=== PATIENT | female | born 1940 | race Caucasian/White ===

== ENCOUNTER 2019-08-06 06:54 | Inpatient (IN) ==
--- NOTE | 2019-07-19 19:42 | PAT Medication Instructions ---
Medication Instructions Date of Service July 19, 2019 Home Medications acetaminophen [Tylenol] 650 mg PO Q6H PRN 07/18/19 [History Confirmed 07/18/19] ezetimibe [Zetia] 10 mg PO QAM 07/18/19 [History Confirmed 07/18/19] fluticasone propionate [Flonase Allergy Relief] 2 spray INTRANASAL DAILY PRN 07/18/19 [History Confirmed 07/18/19] lisinopril 10 mg PO QAM 07/18/19 [History Confirmed 07/18/19] lovastatin 80 mg PO PM 07/18/19 [History Confirmed 07/18/19] metformin 500 mg PO BID 07/18/19 [History Confirmed 07/18/19] omeprazole magnesium [Prilosec OTC] 20 mg PO QAM 07/18/19 [History Confirmed 07/18/19] DO NOT take the morning of surgery lisinopril 10 mg PO QAM 07/18/19 [History Confirmed 07/18/19] metformin 500 mg PO BID 07/18/19 [History Confirmed 07/18/19] Take morning of surgery With a small sip of water, OTHERWISE NOTHING TO EAT OR DRINK AFTER MIDNIGHT: acetaminophen [Tylenol] 650 mg PO Q6H PRN 07/18/19 [History Confirmed 07/18/19] (okay to take up to 4 hours prior to surgery if needed) ezetimibe [Zetia] 10 mg PO QAM 07/18/19 [History Confirmed 07/18/19] fluticasone propionate [Flonase Allergy Relief] 2 spray INTRANASAL DAILY PRN 07/18/19 [History Confirmed 07/18/19] (if needed) omeprazole magnesium [Prilosec OTC] 20 mg PO QAM 07/18/19 [History Confirmed 07/18/19] Take evening before surgery acetaminophen [Tylenol] 650 mg PO Q6H PRN 07/18/19 [History Confirmed 07/18/19] (if needed) fluticasone propionate [Flonase Allergy Relief] 2 spray INTRANASAL DAILY PRN 07/18/19 [History Confirmed 07/18/19] (if needed) lovastatin 80 mg PO PM 07/18/19 [History Confirmed 07/18/19] metformin 500 mg PO BID 07/18/19 [History Confirmed 07/18/19] Other Notes If you have any questions please call us at [phone] or [phone] or [phone] or [phone]
--- NOTE | 2019-07-20 13:25 | Anesthesiology Consultation ---
Date of Service July 20, 2019 Assessment & Plan (1) Encounter for pre-operative examination: - Awaiting review preop testing (labs, CXR). - Awaiting surgeon-ordered PCP preop evaluation scheduled 07/23 (Dr. De La O). Chart Review Chart Review: Patient seen in Pre Admission Testing Teaching & Discussion Pre-Anesthesia Teaching/Discussion Notes: Instructed NPO after midnight before surgery,except medications with 15 cc of water. Medication instructions provided according to the PAT guidelines. History Surgery Operation Date: 08/06/19 08:20 Proposed Procedures p Left Total Knee Arthroplasty - Silas Crowell Height/Weight Height: 5 ft 8 in Weight: 78 kg Allergies Allergy/AdvReac Type Severity Reaction Status Date / Time Prqnguz-Syo-Osd Reductase AdvReac Unknown raises Verified 07/18/19 08:06 Inhibitor liver enzymes Medications Home Medications Medication Instructions Recorded Confirmed Last Taken acetaminophen [Tylenol] 650 mg PO Q6H PRN 07/18/19 07/18/19 Unknown ezetimibe [Zetia] 10 mg PO QAM 07/18/19 07/18/19 Unknown fluticasone propionate [Flonase 2 spray INTRANASAL DAILY PRN 07/18/19 07/18/19 Unknown Allergy Relief] lisinopril 10 mg PO QAM 07/18/19 07/18/19 Unknown lovastatin 80 mg PO PM 07/18/19 07/18/19 Unknown metformin 500 mg PO BID 07/18/19 07/18/19 Unknown omeprazole magnesium [Prilosec OTC] 20 mg PO QAM 07/18/19 07/18/19 Unknown Past Medical History Medical History Arthritis Diabetes mellitus, type 2 NIDDM GERD (gastroesophageal reflux disease) controlled Hiatal hernia Hyperlipidemia Hypertension Urinary bladder incontinence Exercise / Class Metabolic Activity III < 4 Walking/Shop/Light housework Past Family History Family History Sister Family history of diabetes mellitus Sister Family history of diabetes mellitus Brother Family history of diabetes mellitus Brother Family history of diabetes mellitus Brother Family history of diabetes mellitus Brother Family history of diabetes mellitus Father Family history of diabetes mellitus Past Surgical History Surgical History History of cataract surgery R/L History of dilatation and curettage History of ear surgery R/L-TOTAL 3 History of tonsillectomy Past Anesthesia History No Family Hx of Anesthesia Complications and Other "Slow to wake" x 1 episode. No similar issues with other surgeries/anesthesia. History of PONV No Hx of Motion Sickness and History of PONV (nausea x 1) Social History Smoking Status: Never smoker Do You Dip or Chew Tobacco: No Hx Alcohol Use: Yes Alcohol type: beer alcohol intake frequency: holidays/special occasions only Hx Substance Use: No Review of Systems Reflux controlled. Patient denies chest pain, shortness of breath, cough, wheezing, palpitations. Physical Exam Vital Signs VITALS BP 139/87 P 70 TEMP 97.8 SP02 99%RA RESP 18 PHYSICAL Full neck and c-spine range of motion. Full TMJ range of motion. TMD 3 finger breaths Mallampati Score 2 Dentition: full upper/lower denture Lungs: clear throughout to auscultation Cardiac: regular rate and rhythm, no murmurs noted Spine: normal Carotid arteries: negative bruit Extremities: no edema Testing Laboratory Results 06/18/19 SODIUM 137 POTASSIUM 4.8 CHLORIDE 98 CO2 28 BUN 9 CREATININE 1.0 GLUCOSE 89 HGBA1C 5.5% Electrocardiogram Date: 12/12/18 NSR at 68bpm.
--- NOTE | 2019-07-20 14:06 | XRay Report ---
XR chest Pre-admission PA/Lat CLINICAL HISTORY: Preoperative chest COMPARISON STUDY: No previous studies for comparison. FINDINGS: The cardiac and mediastinal contours are normal. There is no evidence of focal pulmonary co nsolidation. There is no evidence of failure. No pleural effusions are visualized.[ IMPRESSION: No active disease in the chest. Electronically signed by: Tre Loo M.D. 07/20/2019 2:04 PM
[2019-07-20 14:54] LABS: Basophils # (auto) 0.03 K/uL (0-0.2); Basophils % (auto) 1.1 %; Eosinophils # (auto) 0.01 K/uL (0-0.5); Eosinophils % (auto) 0.4 %; Hemoglobin 13.2 g/dL (12.0-16.0); Lymphocytes # (auto) 1.17 K/uL (1.2-3.4); Lymphocytes % (auto) 41.8 %; Mean Corpuscular Hemoglobin 28.6 pg (25-34); Mean Corpuscular Hgb Conc 34.7 g/dL (32-36); Mean Corpuscular Volume 82.4 fL (80-100); Mean Platelet Volume 9.8 fL (7.4-10.4); Monocytes # (auto) 0.32 K/uL (0.11-0.59); Monocytes % (auto) 11.4 %; Neutrophils # (auto) 1.27 K/uL (1.4-6.5); Neutrophils % (auto) 45.3 %; Platelet Count 174 K/uL (130-400); RDW Coefficient of Variation 14.6 % (11.5-14.5); RDW Standard Deviation 43.6 fL (36.4-46.3); Red Blood Count 4.61 M/uL (4.2-5.4)
[2019-07-20 15:07] LABS: Partial Thromboplastin Ratio 0.9; Partial Thromboplastin Time 25.5 Seconds (21.0-31.0); Prothrombin Time 10.7 Seconds (9.0-12.0)
[2019-07-20 15:08] LABS: Appearance Urine Clear (Clear); Bacteria Urine Automated 2+ (Negative); Bilirubin Urine Negative (Negative); Blood Urine Negative (Negative); Cast Urine Automated 0 /lpf (0-5); Color Urine Dark Yellow; Glucose Urine UA Negative (Negative); Ketones Urine Negative (Negative); Leukocyte Esterase Urine 1+ (Negative); Nitrite Urine Negative (Negative); Protein Urine Negative (Negative); RBC Urine Automated 0-4 /hpf (0-4); Specific Gravity Urine 1.016 (1.000-1.030); Urobilinogen Urine Negative (Negative); pH Urine 6.5 (4.5-7.5)
[2019-07-20 15:14] LABS: Albumin Level 4.1 gm/dl (3.4-5.0); Calcium 9.9 mg/dl (8.5-10.1); Creatinine Clr Calc Pharmacy 50.7 ml/min; Est GFR (African American) 61.4; Potassium 4.7 mmol/L (3.5-5.1)
[2019-07-20 15:17] LABS: Albumin Globulin Ratio 1.1 (0.9-2); Bilirubin,Total 0.7 mg/dl (0.2-1); Globulin 3.7 gm/dl (2.5-4.0); Total Protein 7.8 gm/dl (6.4-8.2)
--- NOTE | 2019-08-02 15:15 | History & Physical Report ---
Date of Service August 02, 2019 Assessment & Plan (1) Degenerative joint disease of left knee: Plan is to admit and undergo left total knee athroplasty. History of Present Illness Chief Complaint: left knee pain Primary Care Provider: Adrian De La O MD Pt with history of left knee pain for years. Pt has failed nsaids, injectiosn and pt and now ready for TKA. Allergies Allergy/AdvReac Type Severity Reaction Status Date / Time Ljzkojs-Khn-Pvi Reductase AdvReac Unknown raises Verified 07/18/19 08:06 Inhibitor liver enzymes Home Medications Home Medications Medication Instructions Recorded Confirmed Type acetaminophen [Tylenol] 650 mg PO Q6H PRN 07/18/19 07/18/19 History ezetimibe [Zetia] 10 mg PO QAM 07/18/19 07/18/19 History fluticasone propionate [Flonase 2 spray INTRANASAL DAILY PRN 07/18/19 07/18/19 History Allergy Relief] lisinopril 10 mg PO QAM 07/18/19 07/18/19 History lovastatin 80 mg PO PM 07/18/19 07/18/19 History metformin 500 mg PO BID 07/18/19 07/18/19 History omeprazole magnesium [Prilosec OTC] 20 mg PO QAM 07/18/19 07/18/19 History Past Med/Surg History Medical History Arthritis Diabetes mellitus, type 2 NIDDM GERD (gastroesophageal reflux disease) controlled Hiatal hernia Hyperlipidemia Hypertension Urinary bladder incontinence Surgical History History of cataract surgery R/L History of dilatation and curettage History of ear surgery R/L-TOTAL 3 History of tonsillectomy Family History Sister Family history of diabetes mellitus Sister Family history of diabetes mellitus Brother Family history of diabetes mellitus Brother Family history of diabetes mellitus Brother Family history of diabetes mellitus Brother Family history of diabetes mellitus Father Family history of diabetes mellitus Social History Preferred Language: Singaporean Communication Ability: Effective High Pressure Cleaner Required: No Beliefs That Will Affect Care: None Current Living Situation: Spouse Other Information That Helps Us Care for You: No Feels Safe at Home: Yes Safety Concerns: Feels Safe At This Time Smoking Status: Never smoker Do You Dip or Chew Tobacco: No ; Second Hand Exposure: Yes (FAMILY SMOKED GROWING UP) ; Hx Alcohol Use: Yes Alcohol type: beer Hx Substance Use: No Review of Systems All systems reviewed & are unremarkable except as noted in HPI & below Physical Exam Constitutional: WD/WN, vitals as above Respiratory: normal respiratory effort, lungs clear to auscultation Cardiovascular: RRR, no murmur, no edema Gastrointestinal (Abdomen): normal bowel sounds, soft, nontender, no hepatosplenomegaly Musculoskeletal: Knee: + limited ROM of knee, + knee ROM with crepitation, + joint line tenderness and + varus alignment
[~2019-08-06 06:54] MED LIST: ACETAMINOPHEN 500 MG TAB PO SCH; BUPIVACAINE 0.5 % 5 MG/1 ML PF 10ML VIAL ONE; BUPIVACAINE/EPINEPHRINE 0.25% 1:200,000 30 ML VIAL ONE; CEFAZOLIN 1000MG 1,000 MG/7.5 ML SYR IV SCH; CeleBREX 200 MG CAP PO SCH; FAMOTIDINE 20 MG TAB PO SCH; LR 500ML BOLUS IV SCH; LR 60ML/HR IV SCH; METOCLOPRAMIDE HCL 10 MG TABLET PO SCH; ROPIVACAINE 0.5% HCL/PF 150 MG, BUPIVACAINE 0.5% MPF 30 ML, EPINEPHrine 30MG/30ML (OR U... INSTIL SCH; TRANEXAMIC ACID 1,000 MG **IV Intra-op IV SCH; TRANEXAMIC ACID 1,000 MG **IV Pre-op IV SCH; dexAMETHasone 4 MG TAB PO SCH
[2019-08-06] MEDS ORDERED: LIDOCAINE HCL 2% 2 ML VIAL/AMP(20MG/ML) INFIL ONE (07:36)
[2019-08-06] MEDS ORDERED: PROPOFOL IV EMULSION 10 MG/ML 20 ML VIAL IV ONE ×2 (07:36→10:11)
[2019-08-06] MEDS ORDERED: MIDAZOLAM HCL 1 MG/ML 2ML VIAL ONE ×2 (07:37)
[2019-08-06] MEDS ORDERED: fentaNYL citrate 100 MCG/2 ML VIAL ONE (07:37)
--- NOTE | 2019-08-06 08:13 | History & Physical Bridge Note ---
Date of Service August 06, 2019 History & Physical Bridge Note I have examined the patient, reviewed the History & Physical and in the interval since the performance of the History & Physical I have noted the following changes of clinical significance: no changes noted
[2019-08-06] MEDS ORDERED: HYDROmorphone INJ 2 MG/ML SYR/VIAL IV PRN (08:31)
[2019-08-06] MEDS ORDERED: ePHEDrine sulfate 50 MG/ML AMP IV PRN (08:31)
[2019-08-06] MEDS ORDERED: ATROPINE SULFATE 0.1 MG/ML 10ML SYR IV PRN (08:31)
[2019-08-06] MEDS ORDERED: ONDANSETRON INJ 2 MG/ML 2 ML VIAL IV PRN ×2 (08:31→11:47)
[2019-08-06] MEDS ORDERED: fentaNYL citrate 100 MCG/2 ML VIAL IV PRN (08:31)
[2019-08-06] MEDS ORDERED: BACITRACIN INJ 50,000 UNIT VIAL ONE (08:34)
[2019-08-06] MEDS ORDERED: ORTHO JOINT ANESTHETIC ONE (08:34)
--- NOTE | 2019-08-06 09:57 | Post Operative Brief Note ---
Immediate Post Op Note v1 Date of Surgery August 06, 2019 Pre & Post Diagnosis Operation Date: 08/06/19 09:40 Pre-Op Diagnosis: Left Knee Osteoarthritis Post-Op Diagnosis: Left Knee Osteoarthritis I identified the patient and participated in the time-out.: Yes Procedure Operation Date: 08/06/19 09:40 Actual Procedures p Left Total Knee Arthroplasty(Left) - Silas Crowell Surgeon Silas Crowell Tube Filler Earl Mari PAC Estimated Blood Loss 10 Findings Consistent with Post-Op Diagnosis Complications none Disposition Accompanied Patient To Recovery: No Disposition: Recovery Room
--- NOTE | 2019-08-06 09:58 | Operative Report ---
Post Operative Report Pre & Post Diagnosis Operation Date: 08/06/19 09:40 Pre-Op Diagnosis: Left Knee Osteoarthritis Post-Op Diagnosis: Left Knee Osteoarthritis I identified the patient and participated in the time-out.: Yes Procedure Operation Date: 08/06/19 09:40 Actual Procedures p Left Total Knee Arthroplasty(Left) - Silas Crowell Surgeon Silas Crowell Shank Maker Earl Mari PAC Estimated Blood Loss 10 Findings Consistent with Post-Op Diagnosis Specimens None Complications none Disposition Accompanied Patient To Recovery: No Disposition: Recovery Room Description of Procedure IMPLANTS USED: [employer] journey 2 knee size 4 cemented femoral component, a size 3 tibial component, a size 12 constrained insert and a size 29 all polyethylene patella INDICATIONS: Mrs. Quinones is a pleasant (male/female) who has unfortunately failed all forms of conservative measures. Therefore, they have decided to undergo elective surgical intervention. All risks and benefits of the surgery were discussed with the patient and the family in entirety. PROCEDURE: The patient was brought to the operating room and properly identified by myself, anesthesia, and staff. Patient was given a spinal anesthesia and placed on the operating table in the supine position. Tourniquets were applied to the left upper thigh. The leg was then prepped and draped in usual sterile fashion. We made a standard midline approach over the patella and dissected down through the subcutaneous tissue to identify the capsule and performed a medial capsulotomy with the patella everted and the knee flexed.The patient matched implant was then put onto the femur. The femur measured to be a size #4. This was then put into place. We made the appropriate cuts and then placed a retractor behind the proximal tibia to retract anteriorly. We then placed the patient matched knee implant on the tibia. It measured to be a size #3. A size #3 guide was then put in place. We used the tibial punch then put the trial components into place. We had very good range of motion, excellent stability, and excellent patella tracking. We removed the trial components and irrigated the wound. We impacted the components in place using antibiotic cement. All excess cement was removed. We then irrigated the wound once more. We closed the capsule with 0 PDS suture, deep dermis and 2-0 Vicryl, and finally the skin with stephanie. A sterile dressing was applied. The patient was taken to the recovery room in stable condition. Due to the complex nature of the procedure, the entire surgery was performed with the operational assistance of Earl Blackwood PA-C. The phys assistant was under direct supervision, was involved in the actual performance of all aspects of the surgical procedure including hemostasis, tissue retraction and incision, instrument management, patient positioning, and wound closure. I attest to the content of the Intraoperative Record and any orders documented therein. Any exceptions are noted below.
--- NOTE | 2019-08-06 11:24 | Anesthesiology Progress Note ---
Date of Service August 06, 2019 Anesthesia Post Procedure Vital Signs Vital Signs: Temp Pulse Pulse Resp BP Pulse Ox 08/06/19 11:10 92 H 22 134/71 100 08/06/19 11:00 90 22 129/71 100 08/06/19 10:50 88 13 122/57 L 100 08/06/19 10:40 88 13 121/56 L 100 08/06/19 10:30 36.1 C L 95 H 17 123/56 L 99 08/06/19 07:45 36.8 C 74 18 171/96 H 100 Transfer of Care Handoff Completed per policy Notes Mental Status: alert / awake / arousable and participated in evaluation Patient Amnestic to Procedure: Yes Nausea / Vomiting: adequately controlled Pain: adequately controlled Airway Patency, RR, SpO2: stable & adequate BP & HR: stable & adequate Hydration State: stable & adequate Anesthetic Complications: no major complications apparent and Pt Satisfied with anesthetic care
[2019-08-06] MEDS ORDERED: BISACODYL 10 MG SUPP PR PRN (11:47)
[2019-08-06] MEDS ORDERED: METOCLOPRAMIDE HCL INJ 5 MG/ML 2 ML VIAL IV PRN (11:47)
[2019-08-06] MEDS ORDERED: MAGNESIUM HYDROXIDE SUSP 30 ML UDC PO PRN (11:47)
[2019-08-06] MEDS ORDERED: OXYCODONE HCL IR 5 MG TAB (IMMEDIATE RELEASE) PO PRN (11:47)
[2019-08-06] MEDS ORDERED: NALOXONE HCL 0.4 MG/1 ML VIAL/CARP IV PRN (11:47)
[2019-08-06] MEDS: SODIUM CHLORIDE 0.9% 1000ML 1,000 ML IV SCH ×2 (12:15→22:19)
[2019-08-06] MEDS ORDERED: PHARMACY GLYCEMIC MGMT CONSULT PRN (13:45)
[2019-08-06] MEDS: CEFAZOLIN 2000MG 2,000 MG/15 ML SYR IV SCH ×2 (13:46→20:56)
[2019-08-06] MEDS: ACETAMINOPHEN 500 MG TAB PO SCH ×2 (13:46→20:49)
--- NOTE | 2019-08-06 14:41 | Pharmacy Report ---
Glycemic Control Consultation - Date of Service August 06, 2019 - Scope Scope: Glycemic Pharmacist consulted by Earl Blackwood on 08/06 for glycemic control and to write orders per [facility] inpatient glycemic control protocol - Objective Weight: 77.292 kg Accuchecks BSG (last 24hrs): 08/06/19 08/06/19 08/06/19 07:35 10:34 11:58 POC Glucose 98 131 H 189 H - Recent Pertinent Medications Outpatient Anti-diabetic Regimen: * metformin 500 mg bid * A1c = ordered for tomorrow AM Risk Factors for Insulin Resistance: * Steroids: Dxm 8 mg po x 1, ortho (contains dex) - ordered 10 mg iv dex tomorrow 08/07 am x 1 dose * Recent Surgery: POD 0 * Diet: T2DM - Assessment & Plan Assessment & Plan: ASSESSMENT: * 79 year old now s/p L TKA. PMHx significant for DM2, GERD, htn, hld. Managed only on metformin at home for diabetes. A1C unknown- ordered for tomorrow morning * Patient did receive steroids preop - anticipate steroid induced hyperglycemia postop. Therefore, will utilize basal/bolus dosing postop * Nurse notified me patient nauseous postop, ate very little for lunch - therefore will start insulin orders with dinner PLAN FOR INPATIENT GLYCEMIC CONTROL: * Pt is maintained on oral antidiabetic agents as an outpatient * Oral agents are not recommended for inpatient use d/t drug interactions, changing PO intake, and difficulty titrating for acute hyper/hypoglycemia. ADA recommends re-initiating outpatient oral agents 1-2 days prior to discharge if/when appropriate if they were held on admission. * Will hold oral agents for admission and utilize SQ basal bolus insulin regimen which is the recommended regimen for inpatient glycemic control. * Will initiate weight based insulin dosing for insulin vic patient and titrate based on BSG trends. * Basal insulin * Lantus per scale with dinner -for BSG less than 140 - give 10 units -for BSG 140 - 220 - give 15 units -for BSG greater than 220 - give 20 units * Bolus insulin * NovoLog per scale ACHS or Q6hrs while NPO * Goal Range: Low 120 mg/dL - High 160 mg/dL * Correction Factor: 30 mg/dL/unit * Nutritional / Prandial insulin per carb ratio of 1 unit per 10 grams CHO consumed * Please note that the plan above was derived based on current level of insulin resistance and hospital stress. These recommendations are appropriate for inpatient admission only. Plan of care upon discharge will need to be reassessed to avoid potential outpatient hypo/hyperglycemia. Thank you.
[2019-08-06] MEDS ORDERED: TRANEXAMIC ACID 1,000 MG in 0.9 % SODIUM CHLORIDE 100 ML IV SCH (15:53)
[2019-08-06] MEDS ORDERED: LANTUS PER UNIT CHARGE SQ SCH (16:30)
[2019-08-06] MEDS ORDERED: METFORMIN HCL 500 MG TAB PO SCH (17:00)
[2019-08-06] MEDS: INSULIN ASPART 100 UNITS/ML 3 ML PEN SC SCH ×3 (17:45→23:45)
[2019-08-06] MEDS: DOCUSATE SODIUM 100 MG CAP PO SCH (20:49)
[2019-08-06] MEDS: ASPIRIN 81 MG ECTAB PO SCH (20:49)
[2019-08-06] MEDS ORDERED: SENNA 8.6 MG TAB PO SCH (21:00)
[2019-08-06] MEDS ORDERED: LOVASTATIN 20 MG TAB PO SCH (21:00)
[2019-08-07] MEDS: INSULIN ASPART 100 UNITS/ML 3 ML PEN SC SCH ×3 (04:19→12:38)
[2019-08-07] MEDS: ACETAMINOPHEN 500 MG TAB PO SCH ×2 (05:32→13:20)
[2019-08-07 07:06] LABS: Hematocrit (blood only) 33.3 % (37-47); Hemoglobin 11.7 g/dL (12.0-16.0); Mean Corpuscular Hemoglobin 28.9 pg (25-34); Mean Corpuscular Hgb Conc 35.1 g/dL (32-36); Mean Corpuscular Volume 82.2 fL (80-100); Mean Platelet Volume 9.2 fL (7.4-10.4); Platelet Count 161 K/uL (130-400); RDW Coefficient of Variation 14.3 % (11.5-14.5); RDW Standard Deviation 43.2 fL (36.4-46.3); Red Blood Count 4.05 M/uL (4.2-5.4); White Blood Count 6.25 K/uL (4.8-10.8)
[2019-08-07 07:38] LABS: BUN Creatinine Ratio 17.3 (10-20); Calcium 9.1 mg/dl (8.5-10.1); Creatinine Clr Calc Pharmacy 57.9 ml/min; Est GFR (African American) 72.5; Est GFR (Non-African American) 62.5; Potassium 4.3 mmol/L (3.5-5.1)
[2019-08-07 07:51] LABS: Estimated Average Glucose 111 mg/dl; Hemoglobin A1C 5.5 % (4.5-5.6)
[2019-08-07] MEDS ORDERED: dexAMETHasone 10 MG in SYRINGE 0 ML IV SCH (08:00)
--- NOTE | 2019-08-07 08:14 | Anesthesiology Progress Note ---
Date of Service August 07, 2019 Anesthesia Post Procedure Vital Signs Vital Signs: Temp Pulse Pulse Resp BP BP Pulse Ox 08/07/19 07:00 36.6 C 69 16 143/72 H 98 08/07/19 04:00 36.5 C 72 16 129/65 99 08/06/19 23:49 36.4 C L 71 16 146/72 H 99 08/06/19 19:45 36.5 C 70 17 166/83 H 100 08/06/19 15:01 36.7 C 78 16 146/78 H 100 08/06/19 14:25 36.6 C 77 16 142/77 H 100 08/06/19 13:38 100 08/06/19 13:30 72 16 129/66 100 08/06/19 12:32 78 16 137/73 100 08/06/19 12:00 78 16 136/74 100 08/06/19 11:30 36.4 C L 94 H 16 154/73 H 100 08/06/19 11:20 36.4 C L 86 20 133/68 100 08/06/19 11:10 92 H 22 134/71 100 08/06/19 11:00 90 22 129/71 100 08/06/19 10:50 88 13 122/57 L 100 08/06/19 10:40 88 13 121/56 L 100 08/06/19 10:30 36.1 C L 95 H 17 123/56 L 99 Notes Mental Status: alert / awake / arousable and participated in evaluation Patient Amnestic to Procedure: Yes Nausea / Vomiting: adequately controlled Pain: adequately controlled Airway Patency, RR, SpO2: stable & adequate BP & HR: stable & adequate Hydration State: stable & adequate Neuraxial Anesthesia: was administered and sensory block resolved Anesthetic Complications: no major complications apparent and Pt Satisfied with anesthetic care
--- NOTE | 2019-08-07 08:45 | Orthopedic Progress Note ---
Date of Service August 07, 2019 Assessment & Plan (1) Degenerative joint disease of left knee: Postop day 1 status post left TKA PT/OT protocols. Weightbearing as tolerated. DVT prophylaxis-aspirin twice daily, AV impulse boots Pain management as written. Discharge planning-home health services upon discharge Subjective Postop day 1 status post left total knee arthroplasty. Patient is currently sitting up in bed awake and alert. She has no complaints this morning. Pain is controlled. She denies any shortness of breath, chest pain, lightheadedness. She is hoping to go home today. Physical Exam Physical Exam: Dressings are clean, dry, and intact. Calves are soft and nontender. Neurovascular is intact. Toes are mobile. She has good dorsiflexion and plantarflexion. Results & Data Vital Signs (Past 12 Hours) Vital Signs Temp Pulse Resp BP Pulse Ox 08/07/19 07:00 36.6 C 69 16 143/72 H 98 08/07/19 04:00 36.5 C 72 16 129/65 99 08/06/19 23:49 36.4 C L 71 16 146/72 H 99 Laboratory Results Laboratory Results WBC 6.25 K/uL (4.8-10.8) 08/07/19 06:51 RBC 4.05 M/uL (4.2-5.4) L 08/07/19 06:51 Hgb 11.7 g/dL (12.0-16.0) L 08/07/19 06:51 Hct 33.3 % (37-47) L 08/07/19 06:51 MCV 82.2 fL (80-100) 08/07/19 06:51 MCH 28.9 pg (25-34) 08/07/19 06:51 MCHC 35.1 g/dL (32-36) 08/07/19 06:51 RDW Std Deviation 43.2 fL (36.4-46.3) 08/07/19 06:51 RDW Coeff of Olivier 14.3 % (11.5-14.5) 08/07/19 06:51 Plt Count 161 K/uL (130-400) 08/07/19 06:51 MPV 9.2 fL (7.4-10.4) 08/07/19 06:51 Immature Gran % (Auto) 0.0 % 07/20/19 13:38 Neut % (Auto) 45.3 % 07/20/19 13:38 Lymph % (Auto) 41.8 % 07/20/19 13:38 [place] % (Auto) 11.4 % 07/20/19 13:38 Eos % (Auto) 0.4 % 07/20/19 13:38 Baso % (Auto) 1.1 % 07/20/19 13:38 Immature Gran # (Auto) 0.00 K/uL (0.00-0.02) 07/20/19 13:38 Neut # (Auto) 1.27 K/uL (1.4-6.5) L 07/20/19 13:38 Lymph # (Auto) 1.17 K/uL (1.2-3.4) L 07/20/19 13:38 [place] # (Auto) 0.32 K/uL (0.11-0.59) 07/20/19 13:38 Eos # (Auto) 0.01 K/uL (0-0.5) 07/20/19 13:38 Baso # (Auto) 0.03 K/uL (0-0.2) 07/20/19 13:38 PT 10.7 Seconds (9.0-12.0) 07/20/19 13:38 INR 1.0 (0.9-1.1) 07/20/19 13:38 APTT 25.5 Seconds (21.0-31.0) 07/20/19 13:38 PTT Ratio 0.9 07/20/19 13:38 Sodium 134 mmol/L (136-145) L 08/07/19 06:51 Potassium 4.3 mmol/L (3.5-5.1) 08/07/19 06:51 Chloride 106 mmol/L (98-107) 08/07/19 06:51 Carbon Dioxide 23 mmol/L (21-32) 08/07/19 06:51 Anion Gap 6.0 (3-11) 08/07/19 06:51 BUN 16 mg/dl (7-18) 08/07/19 06:51 Creatinine 0.89 mg/dl (0.6-1.2) 08/07/19 06:51 Est Cr Clr Drug Dosing 57.9 ml/min 08/07/19 06:51 Est GFR ( Amer) 72.5 08/07/19 06:51 Est GFR (Non-Af Amer) 62.5 08/07/19 06:51 BUN/Creatinine Ratio 17.3 (10-20) 08/07/19 06:51 Glucose 113 mg/dl (70-99) H 08/07/19 06:51 POC Glucose 114 (70-99) H 08/07/19 08:27 Estimat Average Glucose 111 mg/dl 08/07/19 06:51 Hemoglobin A1c 5.5 % (4.5-5.6) 08/07/19 06:51 Calcium 9.1 mg/dl (8.5-10.1) 08/07/19 06:51 Total Bilirubin 0.7 mg/dl (0.2-1) 07/20/19 13:38 AST 23 U/L (15-37) 07/20/19 13:38 ALT 24 U/L (12-78) 07/20/19 13:38 Alkaline Phosphatase 63 U/L (45-117) 07/20/19 13:38 Total Protein 7.8 gm/dl (6.4-8.2) 07/20/19 13:38 Albumin 4.1 gm/dl (3.4-5.0) 07/20/19 13:38 Globulin 3.7 gm/dl (2.5-4.0) 07/20/19 13:38 Albumin/Globulin Ratio 1.1 (0.9-2) 07/20/19 13:38 Urine Color Dark Yellow 07/20/19 13:38 Urine Appearance Clear (Clear) 07/20/19 13:38 Urine pH 6.5 (4.5-7.5) 07/20/19 13:38 Ur Specific Ash 1.016 (1.000-1.030) 07/20/19 13:38 Urine Protein Negative (Negative) 07/20/19 13:38 Urine Glucose (UA) Negative (Negative) 07/20/19 13:38 Urine Ketones Negative (Negative) 07/20/19 13:38 Urine Blood Negative (Negative) 07/20/19 13:38 Urine Nitrite Negative (Negative) 07/20/19 13:38 Urine Bilirubin Negative (Negative) 07/20/19 13:38 Urine Urobilinogen Negative (Negative) 07/20/19 13:38 Ur Leukocyte Esterase 1+ (Negative) H 07/20/19 13:38 Urine WBC (Auto) 1-5 /hpf (0-5) 07/20/19 13:38 Urine RBC (Auto) 0-4 /hpf (0-4) 07/20/19 13:38 U Hyaline Cast (Auto) 0 /lpf (0-5) 07/20/19 13:38 U Epithel Cells (Auto) 5-10 /lpf (0-5) H 07/20/19 13:38 Urine Bacteria (Auto) 2+ (Negative) H 07/20/19 13:38 Nasal Screen MRSA (PCR) Negative (Negative) 07/20/19 13:38 Blood Type A Positive 07/20/19 13:38 Antibody Screen NEGATIVE 07/20/19 13:38
[2019-08-07] MEDS ORDERED: CIPROFLOXACIN 500 MG TAB PO SCH (09:00)
[2019-08-07] MEDS ORDERED: EZETIMIBE 10 MG TABLET PO SCH (09:00)
[2019-08-07] MEDS ORDERED: LISINOPRIL 10 MG TAB PO SCH (09:00)
[2019-08-07] MEDS: DOCUSATE SODIUM 100 MG CAP PO SCH (09:00)
[2019-08-07] MEDS: ASPIRIN 81 MG ECTAB PO SCH (09:00)
--- NOTE | 2019-08-07 10:28 | Pharmacy Report ---
Pharmacy Glycemic Short Note 2 - Date of Service August 07, 2019 - Glycemic Short BSG Results (Last 24 hours): 08/06/19 08/06/19 08/06/19 10:34 11:58 17:17 Glucose POC Glucose 131 H 189 H 142 H 08/06/19 08/06/19 08/07/19 20:49 23:41 04:04 Glucose POC Glucose 158 H 173 H 128 H 08/07/19 08/07/19 06:51 08:27 Glucose 113 H POC Glucose 114 H ASSESSMENT: * 79 year old now s/p L TKA. PMHx significant for DM2, GERD, htn, hld. Managed only on metformin at home for diabetes. A1C unknown- ordered for tomorrow morning * Patient did receive steroids preop - anticipate steroid induced hyperglycemia postop. Therefore, will utilize basal/bolus dosing postop * Nurse notified me patient nauseous postop, ate very little for lunch - therefore will start insulin orders with dinner 08/07: * Patient received total of 16 units of insulin yesterday, of which 15 were basal to cover steroids given in OR * Fasting BSG this am w/in range at 113 mg/dL - patient to receive IV dexamethasone this morning, anticipate BSGs will increase * Basal insulin given yesterday at ~1800 - will still cover steroids today ; will add scale for extra basal with dinner * Continue same CF/CR ; will wait to add metformin until po intake increases PLAN FOR INPATIENT GLYCEMIC CONTROL: * Will hold oral agents for admission and utilize SQ basal bolus insulin regimen which is the recommended regimen for inpatient glycemic control. * Will initiate weight based insulin dosing for insulin vic patient and titrate based on BSG trends. * Basal insulin * Lantus per scale with dinner -for BSG less than 120 - give 0 units -for BSG 120 - 180 - give 7 units -for BSG greater than 180 - give 13 units * Bolus insulin * NovoLog per scale ACHS or Q6hrs while NPO * Goal Range: Low 120 mg/dL - High 160 mg/dL * Correction Factor: 30 mg/dL/unit * Nutritional / Prandial insulin per carb ratio of 1 unit per 10 grams CHO consumed PLAN FOR DISCHARGE: * A1c = 5.5 % on 08/07/19 Goal A1c = 7% based on age and comorbidities * A1C lower than goal. Would ensure patient not having any low BSGs at home given lower A1C. Would recommend follow up with PCP post discharge for evaluation for need of metformin therapy or for possible dosage reduction in medication.
--- NOTE | 2019-08-08 11:18 | Discharge Summary ---
Date of Service August 08, 2019 Admission HPI Per Admitting Provider Pt with history of left knee pain for years. Pt has failed nsaids, injectiosn and pt and now ready for TKA. Admission Exam Per Admitting Provider Physical Exam Constitutional: WD/WN, vitals as above Respiratory: normal respiratory effort, lungs clear to auscultation Cardiovascular: RRR, no murmur, no edema Gastrointestinal (Abdomen): normal bowel sounds, soft, nontender, no hepatosplenomegaly Musculoskeletal: Knee: + limited ROM of knee, + knee ROM with crepitation, + joint line tenderness and + varus alignment Principal Diagnosis Left knee osteoarthritis Discharge Exam Physical Exam: Dressings are clean, dry, and intact. Calves are soft and nontender. Neurovascular is intact. Toes are mobile. She has good dorsiflexion and plantarflexion. Discharge Data Allergies Allergy/AdvReac Type Severity Reaction Status Date / Time Dimtolo-Djl-Tzm Reductase AdvReac Unknown raises Verified 08/06/19 07:47 Inhibitor liver enzymes Consultations 08/06/19 11:47 Consult Case Management - Discharge Planning Routine Procedures Performed Operation Date: 08/06/19 09:40 Actual Procedures p Left Total Knee Arthroplasty(Left) - Silas Crowell Ordered Studies 08/06/19 05:00 US - OR guided needle placemen Stat Hospital Course (1) Degenerative joint disease of left knee: Patient was admitted on the above-noted date and had the above-noted surgery performed which tolerated well.On her first postoperative day, she was sitting up in bed awake and alert. She had no complaints. Pain was controlled. She denies any shortness of breath, chest pain, lightheadedness. Dressings were clean, dry, and intact. Calves are soft and nontender. Neurovascular is intact. Toes are mobile. Hemoglobin is 11.7. Patient was started on PT and OT protocols. She was continued on DVT prophylaxis and pain management. She progressed well with her physical therapy and was remaining stable and was felt she could be discharged home with home health services. Total Time Total Time Spent Total Time Spent (In Minutes): 5 Discharge Plan Discharge Items Patient Disposition: Home - Home Health Services Reason For Visit: Left Knee Osteoarthritis Discharge Diagnosis: Left knee osteoarthritis Activity: Per Instructions section Weightbearing: Left weightbearing Weightbearing Comment: As tolerated with walker Non-emergency contact: Surgeon Call non-emergency contact if: your pain is not controlled, your temperature is above 101.5, your wound has increased redness and your wound has increased drainage Follow-up/Referrals: Adrian De La O MD [Primary Care Provider] - Diet: Carb Consistent or DM2 Addtl Attending Provider Instructions: Please follow Dr. Mcdonald's total knee arthroplasty instruction sheets that would be given to you prior to discharge. Follow-up with Dr. Mcdonald in 2 weeks. Call for appointment if one has not been made for you. [phone] JUANA Dressing - This is a large suction dressing covering your incision. This will help pull any excess drainage from the wound and allow your incision to heal properly. You may shower with this if you can keep the unit outside of the shower. If any bleeding or leakage is noted please call your doctor's office. This will remain on your incision for 7 days and then should be removed. This can be done yourself or by the home nursing staff if applicable. The entire unit is disposable once removed. Once removed, keep incision clean and dry. If redness or drainage is noted, please call your surgeon. Pending Studies at Discharge: No Stand-Alone Forms: [facility], Opioid Pain Management, Smoking Cessation Medications and DC Order Prescriptions: New aspirin [Ecotrin Low Strength] 81 mg Tablet,Delayed Release (Dr/Ec) 81 mg PO BID 30 Days Qty: 60 RF: 0 acetaminophen [Tylenol Extra Strength] 500 mg Tablet 1,000 mg PO Q8 14 Days Qty: 84 RF: 0 oxycodone 5 mg Tablet 5 mg PO Q4H PRN (Reason: pain) Qty: 30 RF: 0 sennosides [Senokot] 8.6 mg Tablet 17.2 mg PO HS PRN (Reason: constipation) Qty: 30 RF: 0 cefadroxil 500 mg capsule 500 mg PO BID Qty: 28 RF: 1 Continued metformin 500 mg Tablet 500 mg PO BID RF: 0 lovastatin 40 mg Tablet 80 mg PO PM RF: 0 lisinopril 10 mg Tablet 10 mg PO QAM RF: 0 fluticasone propionate [Flonase Allergy Relief] 50 mcg/actuation [place],Suspension 2 spray INTRANASAL DAILY PRN (Reason: Congestion) RF: 0 ezetimibe [Zetia] 10 mg Tablet 10 mg PO QAM RF: 0 Prilosec OTC 20 mg Tablet,Delayed Release (Dr/Ec) 20 mg PO QAM RF: 0 Discontinued acetaminophen [Tylenol] 325 mg Tablet 650 mg PO Q6H PRN (Reason: Pain) RF: 0 ciprofloxacin HCl [Cipro] 500 mg Tablet 500 mg PO DAILY RF: 0 Discharge Orders: Discharge Order (Routine); Ordered 08/07/19 Ordered By: Earl Cardona/Other Patient Handouts: Surgery Prevent DVT After, Replacement Knee Home After, Replacement Knee First Month Admission Data Admit Date/Time: 08/06/19 10:32 Attending Provider: Silas Crowell Admit Provider: Silas Crowell Primary Care Provider: Adrian De La O Other Interventions: Discharge Summary Assessment (RN) Last Done: 08/07/19 13:35 DC Date/Time DO NOT enter until pt leaves facility: 08/07/19 14:15
== END 2019-08-07 14:15 | disposition home health service (06) | DRG 470 ==
LOC: ASU 06:54 → 3E 10:32

== ENCOUNTER 2021-04-02 06:12 | Observation (INO) ==
--- NOTE | 2021-03-20 10:17 | PAT Medication Instructions ---
Medication Instructions Date of Service March 20, 2021 Home Medications Medication Instructions Recorded sennosides [Senokot] 17.2 mg PO HS PRN #30 tab 08/07/19 ezetimibe [Zetia] 10 mg PO QAM fluticasone propionate [Flonase Allergy Relief] 2 spray INTRANASAL DAILY PRN lisinopril 10 mg PO QAM lovastatin 80 mg PO PM metformin 500 mg PO QAM omeprazole magnesium [Prilosec OTC] 20 mg PO QAM sennosides [Senokot] 17.2 mg PO HS PRN aspirin 81 mg PO QAM meclizine 25 mg PO BID PRN multivitamin 1 tab PO QAM polyethylene glycol 3350 [Miralax] 17 g PO DAILY PRN DO NOT take the morning of surgery lisinopril 10 mg PO QAM metformin 500 mg PO QAM multivitamin 1 tab PO QAM polyethylene glycol 3350 [Miralax] 17 g PO DAILY PRN Take morning of surgery With a small sip of water, OTHERWISE NOTHING TO EAT OR DRINK AFTER MIDNIGHT: ezetimibe [Zetia] 10 mg PO QAM fluticasone propionate [Flonase Allergy Relief] 2 spray INTRANASAL DAILY PRN (if needed) omeprazole magnesium [Prilosec OTC] 20 mg PO QAM aspirin 81 mg PO QAM (continue as normal unless told otherwise by surgeon) meclizine 25 mg PO BID PRN (if needed) Take evening before surgery fluticasone propionate [Flonase Allergy Relief] 2 spray INTRANASAL DAILY PRN (if needed) lovastatin 80 mg PO PM sennosides [Senokot] 17.2 mg PO HS PRN (if needed) meclizine 25 mg PO BID PRN (if needed) polyethylene glycol 3350 [Miralax] 17 g PO DAILY PRN (if needed) Other Notes If you have any questions please call us at [phone] or [phone] or [phone] or [phone]
--- NOTE | 2021-03-23 15:08 | Anesthesiology Consultation ---
Date of Service March 23, 2021 Assessment & Plan (1) Encounter for pre-operative examination: - COVID screening: Per assessment on 03/23: Travel screen negative, no known COVID-19 positive contacts or current COVID-19 related symptoms. Patient vaccinated. Surgeon arranging preop COVID testing. Awaiting results. - Check BSG AM DOS Chart Review Chart Review: Acceptable Risk for Surgery and Patient seen in Pre Admission Testing Teaching & Discussion Pre-Anesthesia Teaching/Discussion Notes: Instructed NPO after midnight before surgery,except medications with 15 cc of water. Medication instructions provided according to the PAT guidelines. History Surgery Operation Date: 04/02/21 07:00 Proposed Procedures p Right Total Knee Arthroplasty - Abram Newton MD Height/Weight Height: 5 ft 8 in Weight: 75.7 kg Allergies Allergy/AdvReac Type Severity Reaction Status Date / Time Pctedsh-Wmm-Rcr Reductase AdvReac Unknown raises Verified 03/13/21 12:13 Inhibitor liver enzymes Medications Home Medications Medication Instructions Recorded Confirmed Last Taken ezetimibe [Zetia] 10 mg PO QAM 07/18/19 03/23/21 08/06/19 05:00 lisinopril 10 mg PO QAM 07/18/19 03/23/21 08/05/19 07:00 lovastatin 80 mg PO PM 07/18/19 03/23/21 08/05/19 20:00 metformin 500 mg PO QAM 07/18/19 03/23/21 08/05/19 07:00 omeprazole magnesium [Prilosec OTC] 20 mg PO QAM 07/18/19 03/23/21 08/05/19 07:00 Past Medical History Medical History Arthritis Diabetes mellitus, type 2 NIDDM GERD (gastroesophageal reflux disease) controlled Hiatal hernia Hyperlipidemia Hypertension Right knee DJD Urinary bladder incontinence Vertigo Hx Exercise / Class Metabolic Activity II 4-5 Yardwork/Stairs/Walk up hill (one FS (no CP, no SOB)) Past Family History Family History Sister Family history of diabetes mellitus Sister Family history of diabetes mellitus Brother Family history of diabetes mellitus Brother Family history of diabetes mellitus Brother Family history of diabetes mellitus Brother Family history of diabetes mellitus Father Family history of diabetes mellitus Other No family history of adverse response to anesthesia Past Surgical History Surgical History History of cataract surgery R/L History of colonoscopy History of dilatation and curettage History of ear surgery R/L (total x3) History of tonsillectomy Hx of total knee arthroplasty left Past Anesthesia History No Family Hx of Anesthesia Complications and Other ("slow to wake" with remote surgery, not issue with more recent Left TKA but did have "mild" headache after left TKA) History of PONV No Hx of Motion Sickness and History of PONV Social History Smoking Status: Never smoker Do You Dip or Chew Tobacco: No Hx Alcohol Use: Yes Alcohol type: beer alcohol intake frequency: holidays/special occasions only Hx Substance Use: No Review of Systems Patient denies chest pain, shortness of breath, dyspnea on exertion, fever, chills, cough, wheezing, palpitations. Physical Exam Vital Signs VITALS BP 115/74 P 73 TEMP 98.5 SP02 98%RA RESP 18 PHYSICAL Full cervical extension range of motion. Full TMJ range of motion. TMD 2.5 finger breaths Mallampati Score 2 Dentition: full dentures upper/lower Lungs: clear throughout to auscultation Cardiac: regular rate and rhythm, no murmurs noted Spine: normal Carotid arteries: negative bruit Extremities: non-pitting edema Lab Results Anesthesia Preop Results Results Anesthesia Widget: WBC 3.22 K/uL (4.8-10.8) L 03/23/21 Hgb 12.9 g/dL (12.0-16.0) 03/23/21 Hct 37.2 % (37-47) 03/23/21 Plt 203 K/uL (130-400) 03/23/21 Na 131 mmol/L (136-145) L 03/23/21 K 4.3 mmol/L (3.5-5.1) 03/23/21 Cl 99 mmol/L (98-107) 03/23/21 CO2 28 mmol/L (21-32) 03/23/21 BUN 15 mg/dl (7-18) 03/23/21 Creat 1.06 mg/dl (0.6-1.2) 03/23/21 Glucose Level 122 mg/dl (70-99) H 03/23/21 PT 10.2 Seconds (9.0-12.0) 03/23/21 PTT 25.6 Seconds (21.0-31.0) 03/23/21 INR 1.0 (0.9-1.1) 03/23/21 HA1c 5.2 % (4.5-5.6) 03/23/21 Blood Type A Positive 03/23/21 Antibody Screen NEGATIVE 03/23/21 Lab Comments: Chronic hx of hyponatremia with sodiums in the low 130s. Low WBC. Surgeon's office made aware. > will forward preop labs to PCP for continuity of care. Testing Electrocardiogram Date: 03/06/21 SR with PACs or aberrant conduction at 82bpm. Otherwise "normal" ECG. Chest X-Ray Date: 03/23/21 Findings: + NAD
[~2021-04-02 06:12] MED LIST changes: -BUPIVACAINE 0.5 % 5 MG/1 ML PF 10ML VIAL ONE; +BUPIVACAINE LIPOSOME/PF 266 MG, BUPIVACAINE/EPINEPHRINE 50 ML, SODIUM CHLORIDE 0.9% 30 ... INFIL SCH; -BUPIVACAINE/EPINEPHRINE 0.25% 1:200,000 30 ML VIAL ONE; -CEFAZOLIN 1000MG 1,000 MG/7.5 ML SYR IV SCH; -CeleBREX 200 MG CAP PO SCH; +GABAPENTIN 300 MG CAP PO SCH; -LR 500ML BOLUS IV SCH; +LR 500ML BOLUS, THEN 15ML/HR IV SCH; -ROPIVACAINE 0.5% HCL/PF 150 MG, BUPIVACAINE 0.5% MPF 30 ML, EPINEPHrine 30MG/30ML (OR U... INSTIL SCH; -TRANEXAMIC ACID 1,000 MG **IV Pre-op IV SCH; +ceFAZolin 2000MG 2,000 MG/15 ML SYR IV SCH; -dexAMETHasone 4 MG TAB PO SCH
[2021-04-02] MEDS ORDERED: BUPIVACAINE 0.5 % 5 MG/1 ML PF 10ML VIAL ONE (06:24)
--- NOTE | 2021-04-02 06:59 | History & Physical Bridge Note ---
Date of Service April 02, 2021 History & Physical Bridge Note I have examined the patient, reviewed the History & Physical and in the interval since the performance of the History & Physical I have noted the following changes of clinical significance: no changes noted
[2021-04-02] MEDS ORDERED: MIDAZOLAM HCL 1 MG/ML 2ML VIAL ONE (07:15)
[2021-04-02] MEDS ORDERED: BUPIVACAINE LIPOSOME 1.3% 266 MG/20 ML VIAL ONE (08:57)
[2021-04-02] MEDS ORDERED: BUPIVACAINE 0.25% 30 ML VIAL ONE (08:57)
[2021-04-02] MEDS ORDERED: SODIUM CHLORIDE 0.9% PF 50 ML VIAL ONE (08:57)
[2021-04-02] MEDS ORDERED: EPINEPHrine INJ 1 MG/ML AMP ONE (08:57)
[2021-04-02] MEDS ORDERED: PROPOFOL IV EMULSION 10 MG/ML 20 ML VIAL IV ONE ×2 (09:23→10:05)
--- NOTE | 2021-04-02 11:09 | Operative Report ---
Post Operative Report Pre & Post Diagnosis Operation Date: 04/02/21 08:50 Pre-Op Diagnosis: Right Knee Degenerative Joint Disease Post-Op Diagnosis: Right Knee Degenerative Joint Disease I identified the patient and participated in the time-out.: Yes Procedure Operation Date: 04/02/21 08:50 Actual Procedures p Right Total Knee Arthroplasty(Right) - Abram Newton MD Surgeon Abram Newton MD Assistant Press Operator XANDER Espinoza Estimated Blood Loss 50 Findings Consistent with Post-Op Diagnosis Operative findings with advanced right knee tricompartment DJD. She had extensive grade 4 [id number] disease in all 3 compartments. She did have a fairly osteopenic bone particular the distal femur. Fluids 1000 cc Specimens Right knee sent for pathology. Drains None. Anesthesia Type Spinal MAC Complications none Disposition Accompanied Patient To Recovery: No Indications Patient is 80-year-old female said a several year history increasing bilateral knee pain discomfort. She underwent a left knee replacement elsewhere and is done okay from that. Continue to bother and limited by right knee pain. She failed all conservative measures. That she elected proceed with total knee arthroplasty. Description of Procedure Operative implants consist of: 1 Biomet Vanguard size 62.5 right posterior stabilized femoral component. 2. Biomet size 67 tibial tray. 3. 12 mm posterior stabilized polyethylene insert. 4. 28 x 8 all polypatella. The patient was taken to the operating, identified, and placed on the operating table supine position but all contractors were properly padded. IV antibiotics were tried by anesthesia team. A Oliveira catheter was placed in sterile fashion. A spinal anesthetic and abductor canal block had been provided in the holding area. Oliveira catheter was placed. Right thigh turn was then placed in the right lower extremities and prepped and draped in usual sterile fashion. The right leg was elevated exsanguinated with use of an Esmarch and turns placed at 3 mmHg. An anterior approach to the right knee was then performed through lo ngitudinal incision centered over the patella. Sharp dissection was got through subcutaneous tissue down to the extensor mechanism. A medial parapatellar arthrotomy incision was made. With subperiosteal dissection was carried out medially. The fat pad was resected from each patella tendon. Lateral patellofemoral ligament was released. Patella was subluxated laterally and the knee was flexed. The osteophyte taken off distal femur. The ACL and PCL were then released from distal femur and the tibia subluxated anteriorly. The external treatment line jig was then placed in the interface the tibia and adjusted 12 mm medially. Proximal tibial cut was made remove about 3 to 4 mm of bone from the medial side. The tibia was sized to a size 67. Attention drawn the femur. The distal femur was entered with a sharp drill. Intramedullary canal was suction. A right 5 degree valgus cutting guide was placed. The distal femoral cutting block was pinned in place. Distal femoral cut was made to take an additional 3 mm of bone off distal femur. Femur was then sized to a size 62.5. The AP cutting block was pinned parallel to the epicondylar axis which was 4 degrees of external rotation. Anterior cut, anterior chamfer, posterior cut, posterior chamfer cuts were made. The box cutting guide was placed in a just slight lateral and the box cut was made. The knee was flexed. The remnants of the medial and lateral menisci were excised. The osteophyte taken off the posterior aspect the femur. A trial femoral component was placed. The tibial tray was pinned in maximum external rotation and the drill and stem punch were used to create defect in proximal tibia for the tibial tray. Knee was then trialed and the 12 mm insert fit most appropriately. Attention drawn the patella. The patella was was cleaned of all soft tissue. Patella was quite thin and measured 18 mm in thickness was cut down to 12. The size of a size 28 patella. The lug holes for the patella were then created. The lateral osteophyte was removed. Patella button was placed. Knee was taken through range of motion patella tracked nicely with no thumbs test. Attention turned to placing permanent components. All trial components were removed. Bone plug was placed in the distal femur limit blood loss. Double batch Palacos G cement was mixed. A Biomet Vanguard size 62.5 right posterior stabilized femoral component, size 67 tibial tray, a 12 mm posterior stabilized polyethylene insert, and a 28 x 8 all polypatella then cemented in place. Knee was brought out in full extension until cement feliciano dened. Final cement check was then performed. Pericapsular tissues were injected with total of 100 cc of combination of 20 cc of Exparel, 30 cc of normal saline, 50 cc of quarter percent Marcaine with epinephrine. Patient did receive 1 g tranexamic acid per the tourniquet was then let down for final turn time 53 minutes for hemostasis assured use electrocautery. Extensor mechanism then closed with combination 1 PDS suture #1 Vicryl suture in [id number] fashion. Extensor mechanism checked found to be intact the subcutaneous tissue then closed with 2 Dexon suture in a buried interrupted fashion skin was closed skin stephanie. Leg was then cleaned and dried a sterile dressing both Xeroform, 4 x 4's, sterile cast padding, Rudolph bandage were applied. Patient then transferred to the recovery room in stable condition. The patient tolerated procedure well and there were no complications. Enoc Espinoza, my physician home based assistant, was present for the entire procedure. His assistance was essential and required for appropriate patient positioning, prepping and draping, surgical exposure, performing the technical details of the operation, placement the implants, closure of the wound, and placement of the sterile bandage. I attest to the content of the Intraoperative Record and any orders documented therein. Any exceptions are noted below.
[2021-04-02] MEDS ORDERED: MAGNESIUM HYDROXIDE SUSP 30 ML UDC PO PRN (12:00)
[2021-04-02] MEDS ORDERED: ALUMINUM/MAGNESIUM SUSP 30 ML UDC PO PRN (12:00)
[2021-04-02] MEDS ORDERED: NALOXONE HCL 0.4 MG/1 ML VIAL/CARP IV PRN (12:00)
[2021-04-02] MEDS ORDERED: traMADol HCL 50 MG TABLET PO PRN (12:00)
[2021-04-02] MEDS ORDERED: ONDANSETRON INJ 2 MG/ML 2 ML VIAL IV PRN (12:00)
[2021-04-02] MEDS ORDERED: HYDROmorphone INJ 0.5 MG/0.5 ML SYR IV PRN (12:00)
[2021-04-02] MEDS ORDERED: bisacodyL 10 MG SUPP PR PRN (12:00)
[2021-04-02] MEDS ORDERED: METOCLOPRAMIDE HCL INJ 5 MG/ML 2 ML VIAL IV PRN (12:00)
--- NOTE | 2021-04-02 12:06 | Anesthesiology Progress Note ---
Date of Service April 02, 2021 Anesthesia Post Procedure Vital Signs Vital Signs: Temp Pulse Pulse Resp BP BP Pulse Ox 04/02/21 11:50 97.3 F L 77 16 147/81 H 98 04/02/21 11:30 97.7 F 82 16 145/75 H 98 04/02/21 11:20 81 16 143/73 H 99 04/02/21 11:10 82 16 142/66 H 99 04/02/21 11:02 97.5 F L 96 H 16 135/67 100 04/02/21 07:26 97.9 F 90 20 179/92 H 100 04/02/21 06:45 98.2 F 86 18 184/89 H 100 Transfer of Care Handoff Completed per policy Notes Mental Status: alert / awake / arousable and participated in evaluation Patient Amnestic to Procedure: Yes Nausea / Vomiting: adequately controlled Pain: adequately controlled Airway Patency, RR, SpO2: stable & adequate BP & HR: stable & adequate Hydration State: stable & adequate Neuraxial Anesthesia: was administered and sensory block is resolving Anesthetic Complications: no major complications apparent and Pt Satisfied with anesthetic care
[2021-04-02] MEDS: SODIUM CHLORIDE 0.9% 1000ML 1,000 ML IV SCH ×2 (12:18→21:44)
[2021-04-02] MEDS ORDERED: PHARMACY GLYCEMIC MGMT CONSULT PRN (12:35)
--- NOTE | 2021-04-02 12:35 | XRay Report ---
XR knee RT 1 or 2V routine CLINICAL HISTORY: Surgical Post Op COMPARISON: None. DISCUSSION: Prosthetic right hip joint is seen. Subcutaneous soft tissue edema and emphysema is seen. Surgical drainage and skin stephanie are seen. IMPRESSION: Postoperative changes as above. ACT 112: Negative or not required by law. The above report was generated using voice recognition software. It may contain grammatical, syntax o r spelling errors. Electronically signed by: Heather Ulloa DO 04/02/2021 12:34 PM
[2021-04-02] MEDS ORDERED: GLUCAGON FOR INJ 1 MG VIAL IM PRN (13:00)
[2021-04-02] MEDS ORDERED: GLUCOSE 40% GEL 15 GM TUBE PO PRN (13:00)
[2021-04-02] MEDS ORDERED: CARBOHYDRATES FOR HYPOGLYCEMIA PO PRN (13:00)
[2021-04-02] MEDS ORDERED: DEXTROSE 50% 50 ML SYRINGE IV PRN (13:00)
[2021-04-02] MEDS ORDERED: GLUCOSE 10 TABS/TUBE PO PRN (13:00)
[2021-04-02] MEDS: KETOROLAC TROMETHAMINE 15 MG/ML VIAL IV SCH ×3 (13:34→23:51)
--- NOTE | 2021-04-02 14:37 | Pharmacy Report ---
Pharmacy Glycemic Short Note 2 - Date of Service April 02, 2021 - Glycemic Short BSG Results (Last 24 hours): 04/02/21 04/02/21 04/02/21 06:34 11:03 12:16 POC Glucose 103 H 106 H 111 H OUTPATIENT ANTIDIABETIC REGIMEN: * HbA1c = 5.2% on 03/23/21 * Metformin 500 mg PO BID ASSESSMENT: * 80 y/o F admitted for R TKA. Pt with Type 2 diabetes managed at home on oral Metformin. * Holding Metformin today since patient is post-op. Plan to resume tomorrow if renal function is good and good oral food intak * Will initiate weight based insulin dosing for insulin vic patient and titrate based on BSG trends. * No steroids administered today during her surgery, therefore no anticipated need for basal insulin. * Blood sugars look really well controlled since this AM. * Novolog ordered with loose parameters based on wt and stress between 1 and 2 in dosing calculator. PLAN FOR INPATIENT GLYCEMIC CONTROL: * Hold outpatient oral diabetes medications * Basal insulin * none * Bolus insulin * NovoLog per scale ACHS or Q6hrs while NPO * Goal Range: Low 110 mg/dL - High 140 mg/dL * Correction Factor: 35 mg/dL/unit * Nutritional / Prandial insulin per carb ratio of 1 unit per 18 grams CHO consumed PLAN FOR DISCHARGE: * HbA1c = 5.2% on 03/23/21 indicates well controlled diabetes. * Recommend resuming Metformin 500 mg PO BID with meals as long as patient has adequate oral food intake.
[2021-04-02] MEDS ORDERED: TRANEXAMIC ACID / 0.7% NACL 1,000 MG/100 ML BAG IV SCH (17:00)
[2021-04-02] MEDS: ASCORBIC ACID 500 MG TAB PO SCH (17:54)
[2021-04-02] MEDS: ACETAMINOPHEN 500 MG TAB PO SCH ×2 (17:54→23:51)
[2021-04-02] MEDS: ceFAZolin 1000MG 1,000 MG/7.5 ML SYR IV SCH ×2 (17:54→23:51)
[2021-04-02] MEDS: INSULIN ASPART 100 UNITS/ML 3 ML PEN SC SCH ×2 (18:01→20:43)
[2021-04-02] MEDS ORDERED: SENNA 8.6 MG TAB PO SCH (21:00)
[2021-04-02] MEDS ORDERED: LOVASTATIN 20 MG TAB PO SCH (21:00)
[2021-04-02] MEDS: ASPIRIN 81 MG ECTAB PO SCH (21:37)
[2021-04-02] MEDS: DOCUSATE SODIUM 100 MG CAP PO SCH (21:38)
[2021-04-03] MEDS: KETOROLAC TROMETHAMINE 15 MG/ML VIAL IV SCH (06:19)
[2021-04-03] MEDS: ACETAMINOPHEN 500 MG TAB PO SCH (06:19)
[2021-04-03 06:41] LABS: Hematocrit (blood only) 31.9 % (37-47); Hemoglobin 11.1 g/dL (12.0-16.0); Mean Corpuscular Hemoglobin 28.8 pg (25-34); Mean Corpuscular Hgb Conc 34.8 g/dL (32-36); Mean Corpuscular Volume 82.6 fL (80-100); Mean Platelet Volume 9.2 fL (7.4-10.4); Platelet Count 159 K/uL (130-400); RDW Coefficient of Variation 13.9 % (11.5-14.5); RDW Standard Deviation 42.2 fL (36.4-46.3); Red Blood Count 3.86 M/uL (4.2-5.4); White Blood Count 3.05 K/uL (4.8-10.8)
[2021-04-03 07:06] LABS: Calcium 8.4 mg/dl (8.5-10.1); Creatinine Clr Calc Pharmacy 52.6 ml/min; Est GFR (African American) 71.9 ml/min; Est GFR (Non-African American) 62.1 ml/min; Potassium 4.4 mmol/L (3.5-5.1)
[2021-04-03] MEDS: ASPIRIN 81 MG ECTAB PO SCH (07:52)
[2021-04-03] MEDS: DOCUSATE SODIUM 100 MG CAP PO SCH (07:52)
[2021-04-03] MEDS: ASCORBIC ACID 500 MG TAB PO SCH (07:52)
[2021-04-03] MEDS ORDERED: lisinopril 10 MG TAB PO SCH (09:00)
[2021-04-03] MEDS ORDERED: MULTIVITAMIN TAB PO SCH (09:00)
[2021-04-03] MEDS ORDERED: metFORMIN HCL 500 MG TAB PO SCH (09:00)
[2021-04-03] MEDS ORDERED: PANTOprazole 40 MG TAB PO SCH (09:00)
[2021-04-03] MEDS ORDERED: EZETIMIBE 10 MG TABLET PO SCH (09:00)
[2021-04-03] MEDS: INSULIN ASPART 100 UNITS/ML 3 ML PEN SC SCH (09:09)
--- NOTE | 2021-04-03 09:50 | Progress Notes ---
DATE OF SERVICE: 04/03/2021. SUBJECTIVE: A 80-year-old white female postoperative day 1 from right knee replacement. She is doin g remarkably well. Pain is controlled. No chest pain or shortness of breath. Not feeling dizzy or lightheaded. OBJECTIVE: VITAL SIGNS: Temperature is 36.4. Vital signs are stable. PHYSICAL EXAMINATION: GENERAL: Shows a pleasant, elderly female. She is sitting up in her bedside chair, looks comfortabl e. LUNGS: Clear to auscultation. HEART: Regular rate and rhythm. ABDOMEN: Soft, nontender, nondistended. EXTREMITIES: Grossly neurovascularly intact except as follows: Examination of the right lower extre mity reveals the dressing to be clean, dry and intact. She can dorsiflex and plantarflex her foot ap propriately. She can do a straight leg raise. LABORATORY DATA: Hemoglobin 11.1. Hematocrit 31.9. Electrolytes are stable. ASSESSMENT: A 80-year-old white female postoperative day 1 from right knee replacement, doing quite well. Pain is controlled. She is neurologically intact. Leg is working quite well. PLAN: 1. DVT prophylaxis includes thigh-high TEDs, SCDs, and aspirin twice a day. 2. PT, OT, weightbear as tolerated. Right total knee protocol. 3. Pain control, doing well with current pain regimen. 4. Disposition: Plan to discharge to home with some home health once adequately recovered and medica lly stable. Job ID: [id number]
--- NOTE | 2021-04-03 10:40 | Pharmacy Report ---
Glycemic Ortho Sign Off Note - Date of Service April 03, 2021 - Scope Glycemic Pharmacist consulted for glycemic control and to write orders per [facility] inpatient glycemic control protocol. - Objective Accuchecks BSG (last 24hrs):: 04/02/21 04/02/21 04/02/21 11:03 12:16 17:33 Glucose POC Glucose 106 H 111 H 89 04/02/21 04/03/21 04/03/21 20:28 06:24 08:12 Glucose 98 POC Glucose 130 H 114 H - Assessment * Pt is maintained on oral antidiabeticagent[s]as anoutpatient with excellent control per recent A1c * Appropriate to DC insulin and resume outpatient antidiabetic regimen at discharge * Goal is to maintain BSGs <200 mg/dl (ideally <150 mg/dl) to prevent post op complications - Plan For Inpatient Glycemic Control * Basal insulin * Not needed based on A1c, pre-op BSGs, and minimal risk factors for insulin resistance * Bolus insulin * Utilize low stress weight based NovoLog parameters per scale ACHS Resumed home metformin this AM 04/03 - appropriate to continue on discharge * Pharmacy has entered glycemic orders and is signing off of the glycemic consult. We will no longer be making adjustments to inpatient regimen. Please feel free to re-consult if needed. Thank you.
--- NOTE | 2021-04-04 21:08 | Discharge Summary ---
Date of Service April 04, 2021 Discharge Data Procedures Performed Operation Date: 04/02/21 08:50 Actual Procedures p Right Total Knee Arthroplasty(Right) - Abram Newton MD Hospital Course (1) Status post total right knee replacement: This is a 80 year old patient admitted on 04/02/21 and underwent total knee arthroplasty. She tolerated the procedure well and there were no complications. Transferred to the PACU post op and later to the orthopedic floor for further care. She was given ancef for antibiotic prophylaxis. She was also given MICHELLE stockings, SCDs, and aspirin for DVT prophylaxis. Hemoglobin, hematocrit, and vital signs were monitored during her hospital stay and remained stable. Did not require any blood transfusions. There were no complications during her hospital stay. By post op day #1 the patient was tolerating a regular diet, pain was reasonably controlled with oral pain medicine, and she was participating in physical therapy. On post op day #1 the patient was discharged home and set up with home health care. She was given printed discharge instructions including prescriptions for extra strength tylenol, aspirin, and tramadol. Continue physi britney therapy, weight bearing as tolerated. Continue MICHELLE stockings. Follow up approximately 2 weeks post op or sooner if there are problems or concerns. Coding Level of Care Code None Diagnoses Status post total right knee replacement Z96.651
== END 2021-04-03 12:13 | disposition home health service (06) ==
LOC: ASU 06:12 → 3N 06:12